=== PATIENT | male | born 2005 | race African-American/Black ===

== ENCOUNTER 2023-04-06 07:54 | Emergency (ER) | payer OTHER ==
[2023-04-06] MEDS ORDERED: HYDROCODONE/APAP 5/325 MG TAB ONE (09:01)
[2023-04-06] MEDS ORDERED: DIAZEPAM 5 MG TABLET ONE (09:01)
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
[2023-04-06 10:18] VITALS: TEMP 97.6
[2023-04-06 10:22] VITALS: BP 121/74; O2SAT 98
== END 2023-04-06 10:02 | disposition home or self-care (01) ==
LOC: ER 07:54
DX: M94.0 Chondrocostal junction syndrome [Tietze] (principal); R09.1 Pleurisy; V49.40XA Driver injured in collision with unspecified motor vehicles in traffic accident, initial encounter
CPT/HCPCS: 70450; 71250; 72125; 99284